=== PATIENT | female | born 1975 | race Caucasian/White ===

== ENCOUNTER 2016-12-01 09:50 | Emergency (ER) | payer MEDICAID ==
[~2016-12-01] VITALS: Ht 162.6 cm; Wt 65.8 kg
[2016-12-01 09:59] VITALS: BP 135/78
--- NOTE | 2016-12-01 10:14 | NUR ---
PT PRESENTS TO ER S/P FALL 3 DAYS AGO IN BATHTUB, W/C/O HEAD PAIN AFTER HITTING BACK OF HEAD ON BATHTUB.SLIGHT REDNESS NOTED ON SCALP;NO HEMATOMA;ABRASSION NOTED.PT FEELS NAUSEOUS BUT DENIES V/D; SKIN IS PINK/WARM/DRY; AAOX4 WITH EVEN AND STEADY GAIT; LUNGS CLEAR BL; HR EVEN AND REGULAR; PT DENIES ANY FEVER, CP, SOB, OR COUGH AT THIS TIME; PATIENT STATES PAIN OF 1/10 AT THIS TIME;PATIENT POSITIONED FOR COMFORT; HOB ELEVATED; BEDRAILS UP X2; BED DOWN. ER MD MADE AWARE OF PT STATUS.
--- NOTE | 2016-12-01 10:50 | NUR ---
went to CT Scan accompanied by tech.
[2016-12-01 11:43] VITALS: BP 124/77
== END 2016-12-01 11:43 | disposition home or self-care (01) ==
LOC: MED 09:50
DX: S09.90XA Unspecified injury of head, initial encounter (principal); F07.81 Postconcussional syndrome; G44.319 Acute post-traumatic headache, not intractable; F12.90 Cannabis use, unspecified, uncomplicated; Z88.1 Allergy status to other antibiotic agents; R03.0 Elevated blood-pressure reading, without diagnosis of hypertension; W01.0XXA Fall on same level from slipping, tripping and stumbling without subsequent striking against object, initial encounter; Y93.89 Activity, other specified; Y92.89 Other specified places as the place of occurrence of the external cause; Y99.8 Other external cause status